=== PATIENT | female | born 2000 | race African-American/Black ===

== ENCOUNTER 2021-08-27 10:09 | Outpatient (CLI) | payer OTHER | END 2021-08-27 12:25 | disposition home or self-care (01) | LOC: PRENATAL 10:09 | PROVIDERS: ATTEND Obstetrics & Gynecology Maternal & Fetal Medicine | DX: O35.0XX1 Maternal care for (suspected) central nervous system malformation in fetus, fetus 1 (principal); O35.3XX1 Maternal care for (suspected) damage to fetus from viral disease in mother, fetus 1; O98.512 Other viral diseases complicating pregnancy, second trimester; Z36.89 Encounter for other specified antenatal screening; Z3A.26 26 weeks gestation of pregnancy ==

== ENCOUNTER 2021-11-11 12:04 | Inpatient (IN) | payer OTHER ==
[~2021-11-11] VITALS: Ht 160 cm; Wt 3.2 kg
[2021-11-19] MEDS ORDERED: RHOGAM ULTR1500 UNIT IM (10:09)
[2021-11-21] MEDS ORDERED: IBUPROFEN800 MG PO (08:23)
== END 2021-11-21 10:48 | disposition home or self-care (01) | DRG 788 ==
LOC: LDR 11-18 11:25 → OB/GYN 11-18 11:25
PROVIDERS: ADMIT Specialist; ATTEND Specialist
PROC: 4A1HXCZ Monitoring of Products of Conception, Cardiac Rate, External Approach (ICD-10-PCS; 2021-11-18)
PROC: 10D00Z1 Extraction of Products of Conception, Low, Open Approach (ICD-10-PCS; principal; 2021-11-18 11:00)
DX: O34.211 Maternal care for low transverse scar from previous cesarean delivery (principal); Z20.822 Contact with and (suspected) exposure to COVID-19; Z3A.38 38 weeks gestation of pregnancy; Z37.0 Single live birth